=== PATIENT | male | born 1990 | race Caucasian/White ===

== ENCOUNTER 2020-08-19 10:41 | Emergency (ER) | payer MEDICAID ==
[2020-08-19] MEDS ORDERED: Ondansetron 4 MG Tab.DIS PO ONE (10:58)
[2020-08-19] MEDS ORDERED: LORazepam 2 MG/ML SDV IM ONE (10:58)
[2020-08-19 12:37] LABS: ACETAMINOPHEN < 2 ug/mL (<2)
--- NOTE | 2020-08-19 12:45 | EDM.PDOCBH ---
ED HPI GENERAL MEDICAL PROBLEM - General Stated Complaint: CHEST PAIN Time Seen by Provider: 08/19/20 10:50 Source of Information: Reports: Patient History Limitations: Reports: No Limitations - History of Present Illness INITIAL COMMENTS - FREE TEXT/NARRATIVE: Patient is a 30 YO WM who presented to the ED because of suicidal ideations. He has a history of anxiety, depression, bipolar, and he has not been taking his medications for 3 days now. He also has trouble falling asleep although he denies having hallucinations and homicidal thoughts. His appetite has not been good and c/o nausea but no vomiting. He said his main stressors are: divorce in process, homelessness, and being jobless. - Related Data Allergies Allergy/AdvReac Type Severity Reaction Status Date / Time No Known Allergies Allergy Verified 08/19/20 10:58 Past Medical History Gastrointestinal History: Reports: Gastritis Psychiatric History: Reports: Addiction, Aggressive/Hostile Behaviors, Anxiety, Bipolar, Depression, Panic Attack, Suicidal Ideation ED ROS GENERAL - Review of Systems Review Of Systems: See Below Constitutional: Reports: No Symptoms HEENT: Reports: No Symptoms Respiratory: Reports: No Symptoms Cardiovascular: Reports: No Symptoms Endocrine: Reports: No Symptoms GI/Abdominal: Reports: No Symptoms : Reports: No Symptoms Musculoskeletal: Reports: No Symptoms Skin: Reports: No Symptoms Neurological: Reports: No Symptoms Psychiatric: Reports: Anxiety, Depression, Suicidal Ideation Hematologic/Lymphatic: Reports: No Symptoms ED EXAM, BEHAVIORAL HEALTH - Physical Exam Exam: See Below Exam Limited By: No Limitations General Appearance: Alert, No Apparent Distress Ears: Normal External Exam, Normal Canal Nose: Normal Inspection, Normal Mucosa, No Blood Throat/Mouth: Normal Inspection Head: Atraumatic, Normocephalic Neck: Normal Inspection, Supple, Non-Tender Respiratory/Chest: No Respiratory Distress, Lungs Clear, Normal Breath Sounds, No Accessory Muscle Use, Chest Non-Tender Cardiovascular: Normal Peripheral Pulses, Regular Rate, Rhythm, No Edema, No Gallop, No JVD, No Murmur GI/Abdominal: Normal Bowel Sounds, Soft, Non-Tender, No Organomegaly Back Exam: Normal Inspection, Full Range of Motion Extremities: Normal Inspection, Normal Range of Motion COURSE, BEHAVIORAL HEALTH COMP - Course Vital Signs: Last Vital Signs Temp 36.8 C 08/19/20 14:00 Pulse 95 08/19/20 14:00 Resp 18 08/19/20 14:00 BP 129/74 08/19/20 14:00 Pulse Ox 96 08/19/20 14:00 Lab result was reviewed and discussed with patient Emily Guevara recommend inpatient treatment Orders, Labs, Meds: Active Orders 24 hr Category Date Time Status THYROXINE (T4) FREE, DIRECT, S Stat Lab 08/19/20 12:05 Received Laboratory Tests 08/19/20 08/19/20 08/19/20 Range/Units 12:05 12:05 12:05 WBC 16.3 H (3.2-10.1) x10-3/uL RBC 6.02 H (3.90-5.90) x10(6)uL Hgb 19.0 H (12.9-17.7) g/dL Hct 56.4 H (38.3-50.1) % MCV 93.7 (80.8-98.7) fL MCH 31.5 (27.0-33.3) pg MCHC 33.7 (28.7-35.3) g/dL RDW 13.5 (12.4-15.0) % Plt Count 351 (117-477) x10(3)uL MPV 7.9 (6.7-11.0) fL Neut % (Auto) 82.3 H (40.3-71.8) % Lymph % (Auto) 10.9 L (15.8-45.3) % Baker % (Auto) 6.2 (5.5-15.2) % Eos % (Auto) 0.1 (0.1-6.8) % Baso % (Auto) 0.5 (0.3-3.8) % Neut # (Auto) 13.4 H (1.7-6.9) x10-3/uL Lymph # (Auto) 1.8 (0.5-4.5) x10-3/uL Baker # (Auto) 1.0 (0.0-1.2) x10-3/uL Eos # (Auto) 0.0 (0.0-0.6) x10-3/uL Baso # (Auto) 0.1 (0.0-0.3) x10-3/uL Sodium 139 (135-145) mmol/L Potassium 4.7 (3.5-5.3) mmol/L Chloride 97 L (100-110) mmol/L Carbon Dioxide 30 (21-32) mmol/L BUN 23 H (7-18) mg/dL Creatinine 1.6 H (0.70-1.30) mg/dL Est Cr Clr Drug Dosing 66.28 mL/min Estimated GFR (MDRD) 50 L (>60) BUN/Creatinine Ratio 14.4 (9-20) Glucose 128 H (80-116) mg/dL Calcium 10.2 (8.6-10.2) mg/dL Total Bilirubin 1.3 (0.1-1.3) mg/dL AST 58 H (5-25) IU/L ALT 258 H* (12-36) U/L Alkaline Phosphatase 83 (56-112) IU/L Total Protein 9.5 H (6.0-8.0) g/dL Albumin 5.2 (3.5-5.2) g/dL Globulin 4.3 g/dL Albumin/Globulin Ratio 1.2 TSH, Ultra Sensitive 7.86 H* (0.36-3.74) IU/mL Salicylates 3.6 (<2.8) mg/dL Urine Opiates Screen (NEGATIVE) Ur Oxycodone Screen (NEGATIVE) Ur Propoxyphene Screen (NEGATIVE) Acetaminophen < 2 L (<2) ug/mL Ur Barbituates Screen (NEGATIVE) Ur Tricyclics Screen (NEGATIVE) Ur Phencyclidine Scrn (NEGATIVE) Ur Amphetamine Screen (NEGATIVE) Urine MDMA Screen (NEGATIVE) U Benzodiazepines Scrn (NEGATIVE) U Cocaine Metab Screen (NEGATIVE) U Marijuana (THC) Screen (NEGATIVE) Ethyl Alcohol < 0.03 (<0.03) % 08/19/20 Range/Units 12:59 WBC (3.2-10.1) x10-3/uL RBC (3.90-5.90) x10(6)uL Hgb (12.9-17.7) g/dL Hct (38.3-50.1) % MCV (80.8-98.7) fL MCH (27.0-33.3) pg MCHC (28.7-35.3) g/dL RDW (12.4-15.0) % Plt Count (117-477) x10(3)uL MPV (6.7-11.0) fL Neut % (Auto) (40.3-71.8) % Lymph % (Auto) (15.8-45.3) % Baker % (Auto) (5.5-15.2) % Eos % (Auto) (0.1-6.8) % Baso % (Auto) (0.3-3.8) % Neut # (Auto) (1.7-6.9) x10-3/uL Lymph # (Auto) (0.5-4.5) x10-3/uL Baker # (Auto) (0.0-1.2) x10-3/uL Eos # (Auto) (0.0-0.6) x10-3/uL Baso # (Auto) (0.0-0.3) x10-3/uL Sodium (135-145) mmol/L Potassium (3.5-5.3) mmol/L Chloride (100-110) mmol/L Carbon Dioxide (21-32) mmol/L BUN (7-18) mg/dL Creatinine (0.70-1.30) mg/dL Est Cr Clr Drug Dosing mL/min Estimated GFR (MDRD) (>60) BUN/Creatinine Ratio (9-20) Glucose (80-116) mg/dL Calcium (8.6-10.2) mg/dL Total Bilirubin (0.1-1.3) mg/dL AST (5-25) IU/L ALT (12-36) U/L Alkaline Phosphatase (56-112) IU/L Total Protein (6.0-8.0) g/dL Albumin (3.5-5.2) g/dL Globulin g/dL Albumin/Globulin Ratio TSH, Ultra Sensitive (0.36-3.74) IU/mL Salicylates (<2.8) mg/dL Urine Opiates Screen Negative (NEGATIVE) Ur Oxycodone Screen Negative (NEGATIVE) Ur Propoxyphene Screen Negative (NEGATIVE) Acetaminophen (<2) ug/mL Ur Barbituates Screen Negative (NEGATIVE) Ur Tricyclics Screen Negative (NEGATIVE) Ur Phencyclidine Scrn Negative (NEGATIVE) Ur Amphetamine Screen Positive H (NEGATIVE) Urine MDMA Screen Positive H (NEGATIVE) U Benzodiazepines Scrn Positive H (NEGATIVE) U Cocaine Metab Screen Negative (NEGATIVE) U Marijuana (THC) Screen Positive H (NEGATIVE) Ethyl Alcohol (<0.03) % Medications Discontinued Medications Generic Name Dose Route Start Last Admin Trade Name Bestq PRN Reason Stop Dose Admin Lorazepam 1 mg 08/19/20 10:58 08/19/20 11:02 Lorazepam 2 Mg/Ml Sdv IM 08/19/20 10:59 1 mg ONETIME ONE Administration Ondansetron HCl 4 mg 08/19/20 10:58 08/19/20 11:02 Ondansetron 4 Mg Tab.Dis PO 08/19/20 10:59 4 mg ONETIME ONE Administration Departure - Departure Time of Disposition: 13:30 Disposition: DC/Tfer to Psych Hosp/Unit 65 Condition: Good Clinical Impression: Anxiety, Depression, Suicidal ideation, Bipolar disorder, Polysubstance abuse - Discharge Information Referrals: Davidson Desai MD [Primary Care Provider] - Sepsis Event Note (ED) - Evaluation Sepsis Screening Result: No Definite Risk - Focused Exam Vital Signs: Vital Signs Temp Pulse Resp BP Pulse Ox 08/19/20 14:00 36.8 C 95 18 129/74 96 08/19/20 10:49 36.8 C 140 H 18 129/102 H 97 - My Orders Last 24 Hours: My Active Orders 08/19/20 12:05 THYROXINE (T4) FREE, DIRECT, S Stat - Assessment/Plan Last 24 Hours: My Active Orders 08/19/20 12:05 THYROXINE (T4) FREE, DIRECT, S Stat
== END 2020-08-19 15:20 ==
LOC: FB.ED 10:41
DX: F31.9 Bipolar disorder, unspecified (principal); F41.8 Other specified anxiety disorders; R45.851 Suicidal ideations; F19.10 Other psychoactive substance abuse, uncomplicated
CPT/HCPCS: 36415; 80053; 80143; 80179; 80305; 80307; 84439; 84443; 85025; 96372; 99285; A9270; J2060